=== PATIENT | male | born 1990 | race Caucasian/White ===

== ENCOUNTER 2020-08-14 18:15 | Emergency (ER) | payer SELFPAY ==
[~2020-08-14] VITALS: Ht 167.6 cm; Wt 59.1 kg
[2020-08-14 19:19] VITALS: BP 145/81
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
== END 2020-08-14 19:25 ==
LOC: ER 18:16
DX: T59.3X3A Toxic effect of lacrimogenic gas, assault, initial encounter (principal); S00.212A Abrasion of left eyelid and periocular area, initial encounter; S60.811A Abrasion of right wrist, initial encounter; S30.810A Abrasion of lower back and pelvis, initial encounter; S80.212A Abrasion, left knee, initial encounter; S80.211A Abrasion, right knee, initial encounter; Z13.9 Encounter for screening, unspecified; Y04.8XXA Assault by other bodily force, initial encounter; Y93.89 Activity, other specified; Y92.89 Other specified places as the place of occurrence of the external cause; Y99.8 Other external cause status
CPT/HCPCS: 99283

== ENCOUNTER 2020-10-29 06:51 | Emergency (ER) | payer MEDICAID ==
[~2020-10-29] VITALS: Ht 172.7 cm; Wt 61.4 kg
[2020-10-29] MEDS ORDERED: ALBU8HFA PO (07:12)
[2020-10-29] MEDS ORDERED: PRED20TA PO (07:12)
[2020-10-29 07:19] VITALS: BP 140/80
== END 2020-10-29 07:25 | disposition home or self-care (01) ==
LOC: ER 06:51
DX: J45.901 Unspecified asthma with (acute) exacerbation (principal); R06.02 Shortness of breath; Z76.0 Encounter for issue of repeat prescription; Z79.899 Other long term (current) drug therapy
CPT/HCPCS: 99283

== ENCOUNTER 2020-11-15 15:46 | Emergency (ER) | payer MEDICAID ==
[~2020-11-15] VITALS: Ht 160 cm; Wt 59.1 kg
[~2020-11-15 15:46] MED LIST: ALBU8HFA PO; PRED20TA PO
[2020-11-15] MEDS ORDERED: FLUT1AER7 INH (16:06)
[2020-11-15] MEDS ORDERED: ALBU8HFA PO (16:06)
[2020-11-15 16:13] VITALS: BP 127/70
== END 2020-11-15 17:12 | disposition home or self-care (01) ==
LOC: ER 15:48
DX: Z20.822 Contact with and (suspected) exposure to COVID-19 (principal); R05 Cough; J45.909 Unspecified asthma, uncomplicated; F17.200 Nicotine dependence, unspecified, uncomplicated; Z72.89 Other problems related to lifestyle; Z79.899 Other long term (current) drug therapy
CPT/HCPCS: 36415; 99283; U0003; U0005

== ENCOUNTER 2023-06-17 13:00 | Emergency (ER) | payer MEDICAID ==
[~2023-06-17] VITALS: Ht 172.7 cm; Wt 52.0 kg
[~2023-06-17 13:00] MED LIST changes: +ALBU18HF2 INH; +FLUT1AER7 INH; -PRED20TA PO
[2023-06-17 13:12] VITALS: BP 118/65; PULSE 62; O2SAT 98
[2023-06-17] MEDS ORDERED: LORA10TA65 PO (14:13)
[2023-06-17] MEDS ORDERED: PRED50TA PO (14:13)
[2023-06-17] MEDS ORDERED: ALB0.5UD NEB (14:13)
[2023-06-17] MEDS ORDERED: ALBU18HF2 INH (14:13)
[2023-06-17 14:18] VITALS: RESP 18; TEMP 97.9
== END 2023-06-17 14:20 | disposition home or self-care (01) ==
LOC: ER 13:01
DX: J45.901 Unspecified asthma with (acute) exacerbation (principal); Z76.0 Encounter for issue of repeat prescription; F10.90 Alcohol use, unspecified, uncomplicated; Z79.899 Other long term (current) drug therapy
CPT/HCPCS: 99281

== ENCOUNTER 2023-11-23 03:06 | Emergency (ER) | payer MEDICAID ==
[~2023-11-23] VITALS: Ht 170.2 cm; Wt 62.5 kg
[~2023-11-23 03:06] MED LIST changes: +LORA10TA65 PO; +PRED50TA PO
[2023-11-23] MEDS: triamcinolone acetonide 40mg/ml inj IM ONE (04:35)
[2023-11-23] MEDS: dexamethasone 4mg/ml inj IM ONE (04:35)
[2023-11-23 04:48] VITALS: BP 121/87; PULSE 68; RESP 16; TEMP 98.2; O2SAT 97
== END 2023-11-23 04:50 | disposition home or self-care (01) ==
LOC: ER 03:08
DX: L23.7 Allergic contact dermatitis due to plants, except food (principal); J45.909 Unspecified asthma, uncomplicated; Z79.899 Other long term (current) drug therapy
CPT/HCPCS: 96372; 99284; J1100; J3301